=== PATIENT | female | born 1955 | race Hispanic/Latino ===

== ENCOUNTER → 2022-07-16 | Outpatient (CLI) | payer OTHER, MEDICAID ==
[~2022-07-16] MED LIST: IOHEXOL-350 50ML VIAL IV ONE
== END | disposition home or self-care (01) ==
LOC: RAH 10:18
PROVIDERS: ATTEND Student in an Organized Health Care Education/Training Program
DX: R00.2 Palpitations (principal); M47.815 Spondylosis without myelopathy or radiculopathy, thoracolumbar region
CPT/HCPCS: 75574; Q9967